=== PATIENT | female | born 1990 ===

== ENCOUNTER 2019-12-21 05:55 | Inpatient (IN) | payer OTHER ==
[2019-12-21] VITALS (30 sets, daily range): BP systolic 84–137; BP diastolic 50–82; PULSE 52–155; TEMP 97.4–98.4
[~2019-12-21] VITALS: Ht 165.1 cm; Wt 74.5 kg
--- NOTE | 2019-12-21 06:10 | NUR ---
Pt arrives on unit ambulatory with spouse. States ctx that began at 0000 and increased in frequency and intensity by 0400. Bloody show present. Denies LOF and reports GFM. Changed into clean gown. EFM and toco applied. VSS. SVE per this RN 5-6/100/-[address] Foster notified. Orders for admisison. Ok for epidural Carlos Brown [employer] requested to unit. IV started in RH. Labs drawn. LR and Ricky infusing. Consents signed. Pt up to birthing ball.
[2019-12-21] MEDS ORDERED: PROFERRIN ES12 MG PO (06:21)
[2019-12-21] MEDS ORDERED: PRENATAL MVI (06:21)
--- NOTE | 2019-12-21 07:00 | NUR ---
Pt sitting up on side of bed for epidural. Kate ENGLAND at bedside. Epidural placed, single shot at 0708 and test dose at 0711. Pt tolerated well. 0733:BP84/50, pt feeling nauseated. 10mg ephedrine given IV. 0745:Pt feeling much better, SVE: 8/100/0
[2019-12-21 07:12] LABS: BASO % 0.2 % (0.0-2.0); EOS # 0.1 (0.0-0.7); EOS % 0.5 % (0-4.0); GRAN # 15.7 (1.4-6.5); HEMOGLOBIN 12.5 g/dl (12.5-16.0); LYMPH % 10.5 % (20.0-51.0); MEAN CELL VOLUME 91 fl (80.0-100.0); MEAN CORPUSCULAR HEMOGLOBIN 31 pg (27.0-31.0); MEAN CORPUSCULAR HGB CONC 34 g/dl (33.0-37.0); MEAN PLATELET VOLUME 10.8 fl (7.4-10.4); MONO # 0.8 (0.1-0.6); MONO % 4.3 % (1.7-9.3); PLATELET COUNT 287 K/mm3 (130-400); RED BLOOD COUNT 4.05 M/mm3 (4.10-5.30); REDCELL DISTRIBUTION WIDTH-CV 13.4 % (11.5-14.5)
[2019-12-21 07:14] LABS: HEMATOCRIT 36.9 % (37.0-47.0)
--- NOTE | 2019-12-21 10:35 | NUR ---
Roles at bedside. 1038:SVE: AROM, clear fluid noted, complete +1 station. Pt instructed on how to push with contractions and prepped for delivery. 1050:Pt started pushing with contractions. Alonso catheter removed. 1105:Pt continuing to push, Dr Roles at bedside, progress made. 1145:Dr Foster notified of ready for delivery. Pt continues to push with contractions. 1154: of infants head and shoulders. 1157:Spontaneous delivery of placenta. LR with pitocin infusing without difficulty. Perineum intact. Fundus firm, bleeding WNL. Pericare done and new pads and ice pack in place. Infant to mothers abd in care of Chika LEIGH. Maternal pulse has been tachy during pushing, Roles aware at this time and will continue to monitor.
--- NOTE | 2019-12-21 14:00 | NUR ---
Pt up to bathroom with assist. Voids 500cc. Pericare instructions given, new pads and ice pack in place. Pt ambulates to room 207.
[2019-12-22 02:30] VITALS: BP 94/52; PULSE 84; TEMP 97.7
[2019-12-22 08:00] VITALS: BP 116/76; PULSE 91; TEMP 97.4
[2019-12-22] MEDS ORDERED: MOTRIN 800800 MG/TAB PO (08:00)
--- NOTE | 2019-12-22 09:09 | NUR ---
Initial visit; Patient indisposed, her thanked Bicycle Fitter for offering congratulations and God's blessings for the of their son. Bicycle Fitter thanked family for choosing [facility].
[2019-12-22 16:00] VITALS: BP 96/56; PULSE 86; TEMP 977
[2019-12-22 19:26] VITALS: BP 102/58; PULSE 88; TEMP 98.4
[2019-12-23 08:21] VITALS: BP 114/68; PULSE 78; TEMP 98.3
== END 2019-12-23 15:08 | disposition home or self-care (01) | DRG 807 ==
LOC: LDRO 05:55 → LDR 06:10 → LDRO 06:38 → OB 06:41 → LDR 06:41 → OB 14:15
PROVIDERS: Obstetrics & Gynecology; ADMIT Obstetrics & Gynecology
PROC: 10E0XZZ Delivery of Products of Conception, External Approach (ICD-10-PCS; principal; 2019-12-21)
PROC: 10907ZC Drainage of Amniotic Fluid, Therapeutic from Products of Conception, Via Natural or Artificial Opening (ICD-10-PCS; 2019-12-21)
DX: O48.0 Post-term pregnancy (principal); Z37.0 Single live birth; O99.824 Streptococcus B carrier state complicating childbirth; Z3A.40 40 weeks gestation of pregnancy
CPT/HCPCS: J2540; J2590; J2795; J7120